=== PATIENT | male | born 1995 | race Caucasian/White ===

== ENCOUNTER 2016-12-25 13:26 | Emergency (ER) | payer OTHER ==
[2016-12-25 13:32] VITALS: TEMP 98.2; O2SAT 96
--- NOTE | 2016-12-25 13:45 | EDPHY ---
General Narrative: CHIEF COMPLAINT: Right knee pain HISTORY OF PRESENT ILLNESS: Patient complains of right knee pain. This started this morning as he awoke. He felt a pop sensation. He immediately felt pain in the knee, primarily medially. It is moderate to severe. Difficult to ambulate on it. No numbness or tingling distally. No pain distally. There is some swelling. No pain in the right hip. No direct blow or trauma. Worse with palpation and movement. Some improvement with rest and elevation. Previously rupture that ACL several years ago. No other associated complaints or modifying factors. REVIEW OF SYSTEMS: Ten systems reviewed and are negative unless otherwise noted in the HPI PCP: None locally. SPECIALISTS: None locally. PAST MEDICAL HISTORY: Attention deficit hyperactivity disorder, eczema, right ACL tear PAST SURGICAL HISTORY: ACL repair in [place], 2013 SOCIAL HISTORY: Nonsmoker. Occasional alcohol. Currently a student at [employer]. Originally from [place] FAMILY HISTORY: Noncontributory EXAMINATION General Appearance: Alert, no distress Head: normocephalic, atraumatic Respiratory: No retractions or dressed. No tachypnea Cardiovascular: Regular rate. Symmetric DP and PT pulses 2+. Neurological: A&O, nonfocal, no foot drop. Normal proprioception of the right great toe. Skin: Warm and dry, no rash. No petechiae or purpura. No ecchymosis. No cellulitis or warmth to the right knee. Extremities: Tenderness of the right knee, medial greater than lateral. No tenderness of the patellar tendon. No crepitus. There is extension flexion with difficulty flexing due to pain. Neurovascular intact distal to the area of pain. No evidence of septic joint. Psychiatric: Mood and affect normal DIFFERENTIAL DIAGNOSES: Including but not limited to sprain, strain, fracture, loose body, dislocation MDM: 1:42 p.m. Right medial knee pain that started this morning. There does appear to be a mild effusion. Range of motion is limited by pain. There is active extension of the quadriceps. He is neurovascular intact. X-ray has been ordered. Suspected this is a sprain of the MCL versus meniscal injury. Low suspicion for loose body. 2:20 p.m. X-ray as read by me reveals no acute fracture dislocation. There is evidence of his previous ACL repair. I do not appreciate any loose body. I have discussed with the patient. We discuss crutches for mobilization without the use of a straight leg immobilizer. He has a hinged brace at home from previous surgery that he can use. He will follow up here with Orthopedics for definitive care. ER precautions discussed. Weightbearing as tolerated. He is discharged home neurovascular intact in stable condition. - Diagnostics Imaging: I viewed and interpreted images myself - History History Review: I reviewed the patient's medical records Smoking Status: Never smoked - Objective Vital Signs: Initial Vital Signs Temperature (C) 98.2 F 12/25/16 13:30 Heart Rate 90 12/25/16 13:30 Respiratory Rate 18 12/25/16 13:30 Blood Pressure 131/99 H 12/25/16 13:30 O2 Sat (%) 96 12/25/16 13:30 O2 Delivery Mode Room Air Allergies/Adverse Reactions: No Known Allergies Allergy (Unverified 12/25/16 13:29) Home Medications: Medication Instructions Recorded Adderall 10 MG (*) 12/25/16 Protopic 12/25/16 Vyvanse 12/25/16 ZYRTEC 12/25/16 Departure - Departure Disposition: Home, Routine, Self-Care Clinical Impression: Right knee sprain Qualifiers: Encounter type: initial encounter Involved ligament of knee: medial collateral ligament Qualified Code(s): S83.411A - Sprain of medial collateral ligament of right knee, initial encounter Condition: Good Instructions: Knee Sprain (ED), ACL Injury (ED) Additional Instructions: 1. Follow up with Orthopedics for definitive care 2. ED precautions as discussed 3. Ibuprofen 600 mg every 8 hours as needed for pain 4. Intermittent nonweightbearing [id number]-hb-[id number] exercises 5. Weightbearing as tolerated, advance slowly Referrals: [facility] [Other] - As per Instructions Edgardo Montoya MD [Medical Doctor] - As per Instructions Stand Alone Forms: School Excuse
[2016-12-25 14:49] VITALS: BP 121/82; PULSE 88; RESP 16
== END 2016-12-25 14:44 | disposition home or self-care (01) ==
LOC: EDBD 13:26
DX: S83.411A Sprain of medial collateral ligament of right knee, initial encounter (principal); X58.XXXA Exposure to other specified factors, initial encounter